=== PATIENT | female | born 1955 | race Caucasian/White ===

== ENCOUNTER → 2017-05-17 | Outpatient (CLI) | payer BC ==
[2017-05-17] VITALS (8 sets, daily range): BP systolic 110–141; BP diastolic 50–65
[~2017-05-17] VITALS: Ht 167.6 cm; Wt 90.7 kg
[~2017-05-17] MED LIST: ALLEGRA ALLERG180 MG PO; ASPIR 8181 MG PO; DIPHENHIST50 MG PO; FLEXERIL PO; FLOVENT HFA 4444 MCG INH; IBUPROFEN 800800 M1 PO; METAMUCIL FIBE3.4 GM PO; PRAVACHOL20 MG PO; PROPRANOLOL 1010 MG PO; TESSALON PERLE100 MG PO; TRAMADOL 50 MG50 MG PO
[2017-05-17 08:25] LABS: HEMATOCRIT 35.8 % (37.0-47.0); HEMOGLOBIN 12.1 gm/dL (12.0-15.0); MCH 28.2 pg (26.0-34.0); MCHC 33.7 g/dL (28.0-37.0); MCV 83.7 fL (80.0-100.0); MPV 8.8 fl. (7.2-11.1); RBC 4.27 mil/uL (4.20-5.00); RDW-CV 14.8 % (10.5-14.5); WBC 6.6 thou/uL (4.0-11.0)
[2017-05-17 08:29] LABS: ANION GAP 10 mmol/L (7-16); BUN 25 mg/dL (7-18); CALCIUM 9.2 mg/dL (8.5-10.1); CHLORIDE 105 mmol/L (98-107); CO2 28 mmol/L (21-32); GLUCOSE 94 mg/dL (70-99); POTASSIUM 3.5 mmol/L (3.5-5.1); SODIUM 143 mmol/L (136-145)
[2017-05-17 08:31] LABS: APTT 26.3 Seconds (25.0-31.3); INR 1.1; PROTIME 10.3 Seconds (9.20-11.50)
[2017-05-17 08:34] LABS: ALKALINE PHOSPHATASE 78 U/L (46-116); CHOLESTEROL 226 mg/dL (<200); HDL CHOLESTEROL 86 mg/dL (>40); LDL CHOLESTEROL 125 mg/dL (<100); SERUM ASSESSMENT Clear; SGOT 18 U/L (15-37); SGPT 23 U/L (30-65); TC:HDL 2.6 Ratio (Not establshd); TOTAL BILIRUBIN 0.4 mg/dL (<0.1-1.0); TOTAL PROTEIN 7.6 g/dL (6.4-8.2); TRIGLYCERIDE 78 mg/dL (<150); VLDL 16 mg/dL (<40)
--- NOTE | 2017-05-17 15:19 | EKG ---
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
--- NOTE | 2017-05-17 15:36 | CARD ---
[address] [address] CARDIAC CATH REPORT Name: RCIO ALEXANDRE V Room: [facility]#: [id number] Admission: 05/17/17 Attend Phys: Sandro Stephens MD, F Discharge: Date of : 53 Report #: [id number] THIS REPORT FOR: //name// APPROVED REPORT Study performed: 05/17/2017 08:17:18 Patient Details Patient Status: Out-Patient Room #: The patient is a 62 year-old female Event Personnel Sandro Stephens [employer] Commissioner, Cherie Villarreal RN Sifter Operator, Lula Thakur Monitor, Ralph Valentino (R) Scrub Procedures Performed cardiac cathArt Access - R femoral artery* , Selective Right and Left Coronary Angiography, Left Heart Catheterization Indication Dyspnea, Positive stress test Risk Factors Hypercholesterolemia Procedure Narrative The patient was brought electively to the Cardiac Catheterization Laboratory and was prepped and draped in a sterile manner. The right femoral was infiltrated with 1% Lidocaine subcutaneous anesthesia. A 6fr Ultimum Sheath sheath was inserted into the right femoral artery. Coronary angiography was performed using coronary diagnostic catheters. The right coronary system was accessed and visualized with a Diagnostic catheter. The left coronary system was accessed and visualized with a Diagnostic catheter. The left ventricle was accessed and visualized with a Diagnostic catheter. Left ventricular/Aortic Valve gradient assessed via catheter pullback. Left ventriculogram was performed in RICCI projection. Pre-demployment femoral angiogram was performed . Closure device was deployed with a 6 Fr Mynx. The patient tolerated the procedure well and there were no complications associated with the procedure. There was no hematoma. Attempted cath from the right radial artery. Arterial blood noted in needle, but unable to advance wire. Decided to perform procedure from [place] [address] CARDIAC CATH REPORT Name: RICO ALEXANDRE V Room: [facility]#: [id number] Admission: 05/17/17 Attend Phys: Sandro Stephens MD, F Discharge: Date of : 53 Report #: [id number] Intraoperative Conscious Sedation Sedation start time: 10:16 Case end Time: 10:55 Versed 10 mg Fluoro Time: 1.4 minutes Dose: DAP 31601 cGycm2 577.46 mGy Contrast Type and Amount: Omnipaque 130 ml Coronary Angiography The patient's coronary anatomy is right dominant. [place] Artery Percent Stenosis Left Main: 0 % Prox LAD: 0 % Mid/Distal LAD: 0 % Circumflex: 0 % RCA: 0 % Ramus: % Left Ventriculography The left ventricle is normal in size with normal contractility. The left ventricular ejection fraction is estimated to be 60-65%. Left ventricular wall motion abnormalities are not present. There is no mitral insufficiency. Hemodynamics The aortic pressure is 150/74 mmHg with a mean of mmHg. The left ventricular pressure is 140/5 mmHg with a mean of mmHg. The left ventricular end diastolic pressure is 14 mmHg. There was no gradient across the aortic valve upon pullback. Pullback from the left ventricle to the aorta revealed no gradient across the aortic valve. Conclusion 1. normal coronary arteries 2. suspect false positive cardiolite stress test Recommendations Aggressive Medical Therapy <ELECTRONICALLY SIGNED> By: Sandro Stephens MD, [facility] 05/17/17 1535 1535 1535Dapollo Stephens MD, [facility] /INF
--- NOTE | 2017-05-17 17:01 | H ---
[place] [address] HISTORY AND PHYSICAL Name: RICO ALEXANDRE V Room: [facility]#: [id number] Admission: 05/17/17 Attend Phys: Sandro Stephens MD, F Discharge: Date of : 53 Report #: [id number] THIS REPORT FOR: //name// CC: Sandro Baldwin DATE OF SERVICE: 05/17/2017 PRIMARY CARE PHYSICIAN: Dr. Devin Baldwin, [place], [place]. HISTORY OF PRESENT ILLNESS: The patient is a 62-year-old white female who was brought to the Outpatient Department to undergo cardiac catheterization. The patient has no previous history of heart disease. She states she actually had a stress test back in 2007. She does not exercise on a regular basis because of arthritis. However, about a month ago, she was going down some steps and felt short of breath and diaphoretic. The symptoms resolved. However, she had another episode several days later. She does have occasional sharp pain in her chest. She has occasional fluttering, but no syncope. She went to see Dr. Lao in the Cardiology Clinic on 04/09/2017. He recommended a pharmacologic nuclear stress test that was performed last week in my office. This showed 2 reversible defects in the anterior wall and inferior segment. This was suggestive of ischemia. Because of the multiple areas and risk factors for coronary artery disease, he recommended cardiac catheterization. PAST MEDICAL HISTORY: Otherwise significant for hysterectomy, bladder tuck, laser therapy on the retina and vein therapy. She has a history of hyperlipidemia. No history of hypertension or diabetes. MEDICATIONS: Consist of aspirin, Tonia, pravastatin and tramadol. She recently was given a prescription for propranolol after her stress test. ALLERGIES: SHE HAS AN ALLERGY TO CLINDAMYCIN, CODEINE AND PENICILLIN. FAMILY HISTORY: Her grandfather with heart disease. SOCIAL HISTORY: She is . She and her live in [place]. 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 She quit smoking in 2007. Rarely drinks alcohol. REVIEW OF SYSTEMS: She has had an episode back in 2007 after a plane ride. She apparently developed a swollen leg and then had some slurred speech. She was found to have evidence of a DVT. She also was diagnosed with a PFO and a paradoxical embolus causing a stroke. She was on warfarin for a period of time. She was then switched to aspirin and told to take [place] [address] HISTORY AND PHYSICAL Name: RICO ALEXANDRE V Room: [facility]#: [id number] Admission: 05/17/17 Attend Phys: Sandro Stephens MD, F Discharge: Date of : 53 Report #: [id number] long plane ride. She has history of seasonal allergies. No history of peptic ulcer disease, liver disease, kidney disease, cancer, psychiatric illness or chronic skin condition. Does have arthritis. PHYSICAL EXAMINATION: GENERAL: Revealed a middle-aged female. VITAL SIGNS: Her blood pressure was 130/80, pulse was 70. HEENT: She was anicteric. Conjunctivae pink. Mucous membranes moist. NECK: Neck veins nondistended. No carotid bruits. Neck was supple. CHEST: Clear to auscultation. HEART EXAMINATION: Regular rate and rhythm. ABDOMEN: Soft and nontender. EXTREMITIES: Had no edema. Dorsalis pedis pulse 3+ bilaterally. SKIN: Warm and dry. NEUROLOGICAL EXAMINATION: Nonfocal. LYMPH EXAMINATION: No adenopathy. MUSCULOSKELETAL EXAMINATION: No joint effusion. RADIOLOGIC DATA: ECG shows a sinus rhythm with early transition. LABORATORY DATA: Potassium is 3.5, creatinine 1.0 and glucose 94. Hemoglobin 12.1. IMPRESSION AND RECOMMENDATIONS: 1. Abnormal nuclear stress test. Recommend cardiac catheterization. 2. Episode of dyspnea and diaphoresis. Possible ischemia. 3. Previous history of deep venous thrombosis following a long plane ride. 4. Previous history of a paradoxical embolus causing a stroke. No recurrent episodes. 5. History of seasonal allergies. 6. Hyperlipidemia. The patient is on a statin drug. <ELECTRONICALLY SIGNED> By: Sandro Stephens MD, FACC 05/17/17 1701 0958 [id number] Stephens MD, FACC /nt
== END | disposition home or self-care (01) ==
LOC: M.CL 07:30
PROVIDERS: Internal Medicine Cardiovascular Disease
DX: R94.39 Abnormal result of other cardiovascular function study (principal); R06.00 Dyspnea, unspecified; E78.00 Pure hypercholesterolemia, unspecified; G43.909 Migraine, unspecified, not intractable, without status migrainosus; M19.90 Unspecified osteoarthritis, unspecified site; Z90.710 Acquired absence of both cervix and uterus; Z98.890 Other specified postprocedural states; Z88.8 Allergy status to other drugs, medicaments and biological substances; Z88.0 Allergy status to penicillin; Z79.82 Long term (current) use of aspirin; Z79.899 Other long term (current) drug therapy; Z82.49 Family history of ischemic heart disease and other diseases of the circulatory system; Z79.01 Long term (current) use of anticoagulants